=== PATIENT | female | born 1945 | race Caucasian/White ===

== ENCOUNTER → 2017-03-24 | Outpatient (CLI) | payer MEDICARE ==
[~2017-03-24] MED LIST: REGADENOSON 0.4 MG/5 ML DISP.SYRIN. IV ONE
--- NOTE | 2017-03-24 15:47 | PCVCIMAG ---
APPROVED REPORT Study performed: 03/24/2017 08:19:48 EXAM: Comprehensive 2D, Doppler, and color-flow Echocardiogram Patient Location: Echo lab Room #: 2Status: routine BSA: 2.00 HR: 110 bpmBP: 118/70 mmHg Rhythm: Atrial Fibrillation Other Information Study Quality: Good Risk Factors: Cardiac Risk Factors: HTN, Hyperlipidemia Indications Atrial Fibrillation Dyspnea Hypertension/HDD 2D Dimensions LVEF(%): 49.07 (>50%) IVSd: 7.57 (7-11mm)LVOT Diam: 20.11 (18-24mm) LVDd: 38.47 mm PWd: 9.28 (7-11mm)Ascending Ao: 29.64 (22-36mm) LVDs: 29.10 (25-40mm) Left Atrium: 34.80 (27-40mm) Aortic Root: 19.87 mm LV Single Plane 4CH: 45.51 % LV Single Plane 2CH: 48.43 %Aldana's LVEF: 46.97 % Biplane EF: 47.5 % Volumes Left Atrial Volume (Systole) Single Plane 4CH: 70.64 mLSingle Plane 2CH: 82.19 mL Biplane LA Volume: 76.00 mLLA ESV Index: 38.00 mL/m2 Aortic Valve AoV Peak Catrachito.: 1.02 m/s AO Peak Gr.: 6.30 mmHgLVOT Max P.01 mmHg LVOT Max V: 0.78 m/s NANCY Vmax: 2.45 cm2 Mitral Valve MV E Max Catrachito.: 1.18 m/s MV PHT: 26.53 ms MVA (PHT): 8.29 cm2 IVRT: 58.82 ms Pulmonary Valve PV Peak Catrachito.: 0.84 m/sPV Peak Gr.: 2.85 mmHg Pulmonary Vein P Vein A Dur.: 37.0 msec Tricuspid Valve TR Peak Catrachito.: 2.75 m/s TR Peak Gr.: 30.14 mmHg TV Vmax: 0.80 m/s Left Ventricle The left ventricle is normal size. There is normal LV segmental wall motion. There is normal left ventricular wall thickness. Left ventricular systolic function is mildly decreased. LVEF is 45-50%. The left ventricular diastolic function is normal. Right Ventricle The right ventricle is normal size. The right ventricular systolic function is normal. Atria Left atrium is mildly dilated. Right atrium is moderately dilated. Aortic Valve The aortic valve is normal in structure. No aortic regurgitation is present. There is no aortic valvular stenosis. Mitral Valve The mitral valve is normal in structure. Mild mitral regurgitation. No evidence of mitral valve stenosis. Tricuspid Valve The tricuspid valve is normal in structure. Moderate tricuspid regurgitation. Mild pulmonary hypertension with a PA pressure of 38 mmHg. Pulmonic Valve The pulmonary valve is normal in structure. There is no pulmonic valvular regurgitation. Great Vessels The aortic root is normal in size. The ascending aorta is normal in size. IVC is normal in size and collapses with >50% inspiration Pericardium There is no pericardial effusion. There is no pleural effusion. <Conclusion> The left ventricle is normal size. LVEF is 45-50%. The left ventricular diastolic function is normal. Left atrium is mildly dilated. Right atrium is moderately dilated. There is no aortic valvular stenosis. Mild mitral regurgitation. Moderate tricuspid regurgitation. Mild pulmonary hypertension with a PA pressure of 38 mmHg. There is no pericardial effusion.
--- NOTE | 2017-03-29 11:16 | PCVCIMAG ---
APPROVED REPORT Exam: Nuclear Stress Test Indication: Atrial Fibrillation Patient Location: Out-Patient Stress Nurse: Fawn Reina RN, Jennifer Delarosa RN [place] Tech:Aliyah Hui [facility] Ht: 5 ft 10 in Wt: 180 lbs BSA: 2.00 m2 HR: 109 bpm BP: 140/60 mmHg BMI: 25.8 Rhythm: Atrial Fibrillation, RVR Medical History Medical History: HTN, Hyperlipidemia, Atrial Fibrillation, Age, Former Smoker Medications: Amlodipine, Metoprolol, Eliquis Allergies: No known drug allergies Pretest Chest Pain Characteristics: No chest pain Exercise History: Physically active Meds Held (24 hrs): Metoprolol NM EXAM: Myocardial Perfusion REST/STRESS Imaging Protocol: Rest Tc-99m/Stress Tc-99m 1 day Resting Data Rest SPECT myocardial perfusion imaging was performed in supine position 45 minutes following the intravenous injection of 10.3 mCi of Tc-99m Sestamibi. Time of rest injection: 914 Date: 03/24/2017 Administration Route: IV Administration Site: Right Hand Pharmacologic Stress Pharmacologic stress test was performed by injecting Regadenoson 0.4 mg IV push followed by the intravenous injection of 32.3 mCi of Tc-99m Sestamibi. Time of stress injection: 5 Date: 03/24/2017 Administration Route: IV Administration Site: Right Hand Gated Stress SPECT was performed 45 minutes after stress injection. The images were gated to evaluate regional wall motion and calculate left ventricular ejection fraction. Study Quality Study: Good Study Data Post stress, the left ventricular ejection was 56%.. SSS: 1 SRS: 0 SDS: 1 TID = 1.06. Perfusion No evidence of stress induced ischemia or prior myocardial infarction. Wall Motion Normal left ventricular size and function with no regional wall motion abnormalities. Nuclear Conclusion No evidence of stress induced ischemia or prior myocardial infarction. Normal left ventricular size and function with no regional wall motion abnormalities. Post stress, the left ventricular ejection was 56%.. No prior study available for comparison. Interpreted by: Donavon Keith MD Electronically Approved: 03/24/2017 17:35:50 Stress Test Details Stress Test: Pharmacologic stress testing performed using 0.4 mg of regadenoson per 5 mL given IV over 10 seconds. Reason for pharmacologic stress test: physical limitation. HR Resting HR: 109 bpmMax Heart Rate (APMHR): 148 bpm Max HR Achieved: 153 bpmTarget HR (85% APMHR): 125 bpm % of APMHR: 103 Recovery HR: 125 bpm HR response to stress: 140 BP Resting BP: 140/60 mmHg Max BP: 159/78 mmHg ECG Resting ECG: Atrial Fibrillation Stress ECG: Atrial Fibrillation non spec st t changes Clinical Reason for Termination: Completed protocol Stress Symptoms: Dyspnea, Warm Exercise duration: 0 min 55 sec Exercise capacity: 1 METs Symptoms resolved during recovery. Stress ECG Conclusion ECG: Non-ischemic Clinical: Non-ischemic <Conclusion> ECG: Non-ischemic Clinical: Non-ischemic
== END | disposition home or self-care (01) ==
LOC: PCVCIMAG 08:09
PROVIDERS: ATTEND Internal Medicine Cardiovascular Disease
DX: I48.0 Paroxysmal atrial fibrillation (principal); I10 Essential (primary) hypertension; E78.5 Hyperlipidemia, unspecified; R06.00 Dyspnea, unspecified; Z87.891 Personal history of nicotine dependence
CPT/HCPCS: 78452; 93017; 93306; A9500; J2785

== ENCOUNTER → 2017-03-29 | Outpatient (CLI) | payer MEDICARE | END | disposition home or self-care (01) | LOC: PCVCCLINIC 10:40 | PROVIDERS: ATTEND Internal Medicine Cardiovascular Disease | DX: I48.0 Paroxysmal atrial fibrillation (principal); I10 Essential (primary) hypertension; E78.5 Hyperlipidemia, unspecified; R94.31 Abnormal electrocardiogram [ECG] [EKG]; Z87.891 Personal history of nicotine dependence; Z79.899 Other long term (current) drug therapy; Z79.82 Long term (current) use of aspirin | CPT/HCPCS: 80061; 93005; G0463 ==

== ENCOUNTER → 2017-04-14 | Outpatient (CLI) | payer MEDICARE | END | disposition home or self-care (01) | LOC: PCVCCLINIC 11:30 | PROVIDERS: ATTEND Internal Medicine Cardiovascular Disease | DX: I48.0 Paroxysmal atrial fibrillation (principal); I10 Essential (primary) hypertension; E78.00 Pure hypercholesterolemia, unspecified; R00.2 Palpitations; Z87.891 Personal history of nicotine dependence; Z79.82 Long term (current) use of aspirin; Z79.899 Other long term (current) drug therapy | CPT/HCPCS: 93005; G0463 ==

== ENCOUNTER → 2017-04-16 | Outpatient (CLI) | payer MEDICARE ==
--- NOTE | 2017-04-08 12:11 | PCVCIMAG ---
APPROVED REPORT Study performed: 04/08/2017 08:36:32 EXAM: Comprehensive 2D, Doppler, and color-flow Echocardiogram Patient Location: [facility] Room #: 3 Status: routine BSA: 2.00 HR: 90 bpmBP: 133/76 mmHg Rhythm: Atrial Fibrillation Other Information Study Quality: Good Indications Atrial Fibrillation Echo Enhancing Agent Indication: Rule out Shunt Agent(s) / Amount(s) Used: Agitated Saline cc Comments: Negative contrast study for shunt flow. Procedure After obtaining informed consent, patient underwent transesophageal echo in the [facility] [employer] [facility] [employer]. Type of Sedation : Conscious Sedation Sedation was administered by Jennyfer Spence RN. Sedation was achieved intravenously with: Versed (4 mg) Fentanyl (125 mcg) Transesophageal probe was inserted and advanced into esophagus without difficulty by Alessandro Guadarrama MD. Echo enhancement indication: R/O Septal defect. Echo enhancement agent administered: Agitated Saline The JOSE DANIEL was performed without complications. Throughout the procedure, the blood pressure, pulse oximetry, cardiac rhythm, and rate were monitored. The patient tolerated the procedure without adverse effects. Recovery from conscious sedation was uneventful and vital signs were stable. Left Ventricle The left ventricle is normal size. The left ventricle is normal size. There is normal LV segmental wall motion. There is normal left ventricular wall thickness. The left ventricular systolic function is normal. The left ventricular ejection fraction is within the normal range. LVEF is 55-60%. Right Ventricle The right ventricle is normal size. The right ventricular systolic function is normal. Atria No masses or clots in the left atrium or left atrial appendage Left atrium is dilated No shunting by contrast bubble injection Right atrium is dilated. Aortic Valve The aortic valve is normal in structure. No aortic regurgitation is present. There is no aortic valvular stenosis. Mitral Valve The mitral valve is normal in structure. Mild to moderate mitral regurgitation. Tricuspid Valve Mild tricuspid regurgitation. Pulmonic Valve The pulmonary valve is normal in structure. There is no pulmonic valvular regurgitation. Great Vessels The aortic root is normal in size. The ascending aorta is normal in size. Pericardium There is no pericardial effusion. <Conclusion> The left ventricular systolic function is normal. LVEF is 55-60%. No masses or clots in the left atrium or left atrial appendage Both atria are dilated. No shunting by contrast bubble injection The aortic valve is normal in structure. No aortic regurgitation or insufficiency The mitral valve is normal in structure. Mild to moderate mitral regurgitation. There is no pericardial effusion.
--- NOTE | 2017-04-08 13:14 | PCVCINTER ---
APPROVED REPORT Patient Location: Out-Patient Room #: Stress Nurse: Full written and informed consent was obtained. Ana Barnes was sedated with intravenous Versed and fentanyl. 120 biphasic synchronous joules were applied to the chest with prompt conversion of atrial fibrillation to sinus rhythm. Ana remained in hemodynamically, electrically, neurologically stable condition following the procedure. Conclusion 1. Successful cardioversion of atrial fibrillation to normal sinus rhythm
[~2017-04-16] MED LIST changes: +BENZOCAINE ONE 20% MUCOSAL SPRAY.; +IV NORMAL SALINE 1000ML BAG 1,000 ML ONE; +IV NORMAL SALINE 500ML BAG 500 ML ONE; +MIDAZOLAM HCL/PF 2 MG/2 ML VIAL. ONE; -REGADENOSON 0.4 MG/5 ML DISP.SYRIN. IV ONE; +fentaNYL PF VIAL 100 MCG/2 ML VIAL ONE
--- NOTE | 2017-04-16 12:31 | PCVCINTER ---
APPROVED REPORT Patient Location: Out-Patient Room #: 1 Stress Nurse: Jennyfer Spence RN Indication: Atrial fibrillation Procedure: Full informed and written consent obtained. Sedated with intravenous versed and fentanyl. 120J biphasic applied to chest with prompt conversion of atrial fibrillation to sinus rhythm Conclusion 1. Successful cardioversion of atrial fibrillation to sinus rhythm with single 120J shock.
== END | disposition home or self-care (01) ==
LOC: PCVCINTER 08:53
PROVIDERS: ATTEND Internal Medicine
DX: I08.1 Rheumatic disorders of both mitral and tricuspid valves (principal); I48.91 Unspecified atrial fibrillation
CPT/HCPCS: 92960; 93312; 93325; 99152; 99153; J2250; J3010; J7030; J7040

== ENCOUNTER → 2017-05-13 | Outpatient (CLI) | payer MEDICARE | END | disposition home or self-care (01) | LOC: PCVCCLINIC 14:07 | DX: I48.0 Paroxysmal atrial fibrillation (principal); I10 Essential (primary) hypertension; K21.9 Gastro-esophageal reflux disease without esophagitis; I44.0 Atrioventricular block, first degree; Z87.891 Personal history of nicotine dependence; Z79.899 Other long term (current) drug therapy | CPT/HCPCS: 93005; G0463 ==

== ENCOUNTER → 2017-09-03 | Outpatient (CLI) | payer MEDICARE | END | disposition home or self-care (01) | LOC: PCVCIMAG 11:13 | DX: I48.0 Paroxysmal atrial fibrillation (principal); E78.00 Pure hypercholesterolemia, unspecified; I10 Essential (primary) hypertension; I07.1 Rheumatic tricuspid insufficiency; Z87.891 Personal history of nicotine dependence; Z79.899 Other long term (current) drug therapy | CPT/HCPCS: 93005; 93306; G0463 ==